=== PATIENT | female | born 1995 | race Caucasian/White ===

== ENCOUNTER 2018-05-17 04:51 | Emergency (ER) | payer OTHER ==
[2018-05-17 06:03] LABS: HCG Qualitative,Urine Positive (Negative)
[2018-05-17 06:05] LABS: Bilirubin,Urine NEG (Negative); Blood,Urine NEG (Negative); Color,Urine Yellow (Yellow); Mucus,Urine 1+ /HPF; Protein,Urine <15 mg/dL mg/dL (Negative); Urobilinogen,Urine < 2.0 mg/dL (<2.0)
[2018-05-17 06:32] LABS: Basophils % (Auto) 0.4 % (0.0-1.8); Eosinophils % (Auto) 0.3 % (0.0-4.3); Hematocrit 39.7 % (30.3-42.9); Hemoglobin 13.1 gm/dl (10.1-14.3); Lymphocytes # (Auto) 1.7 K/mm3 (1.2-5.4); Lymphocytes % (Auto) 15.2 % (13.4-35.0); Mean Corpuscular HGB Conc 33 % (30-34); Mean Corpuscular Volume 85 fl (79-97); Monocytes # (Auto) 0.7 K/mm3 (0.0-0.8); Monocytes % (Auto) 6.3 % (0.0-7.3); Platelet Count 252 K/mm3 (140-440); Red Blood Count 4.67 M/mm3 (3.65-5.03); Red Cell Distribution Width 14.5 % (13.2-15.2)
[2018-05-17 07:27] LABS: Alanine Aminotransferase 27 units/L (7-56); Albumin 4.5 g/dL (3.9-5); BUN/Creatinine Ratio 20; Blood Urea Nitrogen 8 mg/dL (7-17); Calcium 9.6 mg/dL (8.4-10.2); Hemolysis Index 5
--- NOTE | 2018-05-17 07:31 | Emergency Department Report ---
ED Abdominal Pain HPI - General Chief Complaint: Abdominal Pain Stated Complaint: ABD PAIN Time Seen by Provider: 05/17/18 07:08 Source: patient Mode of arrival: Ambulatory Limitations: No Limitations - History of Present Illness Initial Comments: She is a 22-year-old female that reports to the ER today complaining of a fall during the night. She states at 1:30 this morning she got up while reaching for a bowl of fruit that she had on her floor and tripped and fell. She states that she landed on her abdomen. Pt reports diffuse pain. Pt obese. Vision reporting that she has had a positive home test. Her last menstrual period was 224. Patient denies vaginal bleeding. She is in no acute distress on exam. a1 Severity scale (0 -10): 0 Associated Symptoms: denies other symptoms - Related Data Allergies Allergy/AdvReac Type Severity Reaction Status Date / Time No Known Allergies Allergy Verified 01/14/18 00:06 ED Review of Systems ROS: Stated complaint: ABD PAIN Other details as noted in HPI Comment: All other systems reviewed and negative Constitutional: denies: chills Eyes: denies: eye pain Respiratory: denies: cough Cardiovascular: denies: palpitations Gastrointestinal: as per HPI, abdominal pain. denies: nausea, vomiting Genitourinary: denies: dysuria Musculoskeletal: denies: back pain Skin: denies: rash Neurological: denies: headache Psychiatric: denies: anxiety Hematological/Lymphatic: denies: easy bleeding ED Past Medical Hx - Past Medical History Previous Medical History?: No Hx Hypertension: No Hx Diabetes: No - Surgical History Hx Appendectomy: Yes Additional Surgical History: - Family History Family history: no significant - Social History Smoking Status: Never Smoker Substance Use Type: None ED Physical Exam - General Limitations: No Limitations General appearance: alert, in no apparent distress - Head Head exam: Present: atraumatic, normocephalic - Eye Eye exam: Present: normal appearance, PERRL - ENT ENT exam: Present: mucous membranes moist - Neck Neck exam: Present: normal inspection, full ROM - Respiratory Respiratory exam: Present: normal lung sounds bilaterally - Cardiovascular Cardiovascular Exam: Present: regular rate - GI/Abdominal GI/Abdominal exam: Present: soft, normal bowel sounds - Rectal Rectal exam: Present: deferred - Extremities Exam Extremities exam: Present: normal inspection, full ROM - Back Exam Back exam: Present: normal inspection, full ROM. Absent: tenderness, CVA tenderness (R), CVA tenderness (L), muscle spasm - Neurological Exam Neurological exam: Present: alert, oriented X3, normal gait, reflexes normal - Psychiatric Psychiatric exam: Present: normal affect, normal mood - Skin Skin exam: Present: warm, dry, intact ED Course Vital Signs 05/17/18 05/17/18 05/17/18 05:03 05:29 10:54 Temperature 98.1 F 98.1 F Pulse Rate 80 67 82 Respiratory 18 18 16 Rate Blood Pressure 113/58 113/58 Blood Pressure 108/62 [Right] O2 Sat by Pulse 99 97 Oximetry ED Medical Decision Making - Lab Data Result diagrams: 05/17/18 05:57 05/17/18 05:57 - Radiology Data Radiology results: report reviewed, image reviewed - Medical Decision Making Labs 05/17/18 05/17/18 05/17/18 05:40 05:57 05:57 WBC 11.4 H RBC 4.67 Hgb 13.1 Hct 39.7 MCV 85 MCH 28 MCHC 33 RDW 14.5 Plt Count 252 Lymph % (Auto) 15.2 [place] % (Auto) 6.3 Eos % (Auto) 0.3 Baso % (Auto) 0.4 Lymph # 1.7 [place] # 0.7 Eos # 0.0 Baso # 0.0 Seg Neutrophils % 77.8 H Seg Neutrophils # 8.9 H Sodium 138 Potassium 4.1 Chloride 102.2 Carbon Dioxide 21 L Anion Gap 19 BUN 8 Creatinine 0.4 L Estimated GFR > 60 BUN/Creatinine Ratio 20 Glucose 99 Calcium 9.6 Total Bilirubin 0.30 AST 18 ALT 27 Alkaline Phosphatase 100 Total Protein 7.4 Albumin 4.5 Albumin/Globulin Ratio 1.6 HCG, Quant Urine Color Yellow Urine Turbidity Slightly-cloudy Urine pH 6.0 Ur Specific [place] 1.033 H Urine Protein <15 mg/dl Urine Glucose (UA) Neg Urine Ketones 20 Urine Blood Neg Urine Nitrite Neg Ur Reducing Substances Not Reportable Urine Bilirubin Neg Urine Ictotest Not Reportable Urine Urobilinogen < 2.0 Ur Leukocyte Esterase Tr Urine WBC (Auto) 2.0 Urine RBC (Auto) 3.0 U Epithel Cells (Auto) 14.0 H Urine Mucus 1+ Urine HCG, Qual Positive A 05/17/18 07:30 WBC RBC Hgb Hct MCV MCH MCHC RDW Plt Count Lymph % (Auto) [place] % (Auto) Eos % (Auto) Baso % (Auto) Lymph # [place] # Eos # Baso # Seg Neutrophils % Seg Neutrophils # Sodium Potassium Chloride Carbon Dioxide Anion Gap BUN Creatinine Estimated GFR BUN/Creatinine Ratio Glucose Calcium Total Bilirubin AST ALT Alkaline Phosphatase Total Protein Albumin Albumin/Globulin Ratio HCG, Quant 07340 H Urine Color Urine Turbidity Urine pH Ur Specific [place] Urine Protein Urine Glucose (UA) Urine Ketones Urine Blood Urine Nitrite Ur Reducing Substances Urine Bilirubin Urine Ictotest Urine Urobilinogen Ur Leukocyte Esterase Urine WBC (Auto) Urine RBC (Auto) U Epithel Cells (Auto) Urine Mucus Urine HCG, Qual Vital Signs 05/17/18 05/17/18 05/17/18 05:03 05:29 10:54 Temperature 98.1 F 98.1 F Pulse Rate 80 67 82 Respiratory 18 18 16 Rate Blood Pressure 113/58 113/58 Blood Pressure 108/62 [Right] O2 Sat by Pulse 99 97 Oximetry Using the audit machine operator the patient was informed of the ultrasound findings which are positive for subchorionic hemorrhage. Given the patient's size in the age of the I doubt that the fall is related to this subchorionic hemorrhage. Patient has had one miscarriage in the past. Patient was informed on discharge that she may in fact have some vaginal bleeding and not tympanic if she should but to go to the [facility].Patient has had no care to this point. I discussed with her that she needs to see an [facility] within 48 hours. She has been given a referral. Patient being discharged home with her significant other, on pelvic rest with Tylenol for pain. Patient and significant other verbalize understanding of discharge plan of care. On dc pt ambulatory and taking PO without difficulty. She denies pain. - Differential Diagnosis ro AB Critical care attestation.: If time is entered above; I have spent that time in minutes in the direct care of this critically ill patient, excluding procedure time. ED Disposition Clinical Impression: , Subchorionic hematoma, Fall Disposition: DC-[id number] TO HOME OR SELFCARE Is pt being admited?: No Does the pt Need Aspirin: No Condition: Stable Instructions: (ED) Additional Instructions: nothing in vagina tylenol for pain diet as tolerated hydrate well with water follow up with obgyn within 48 hours referral below Referrals: [place]AVON [place] MD ANGELA [Primary Care Provider] - 3-5 Days CRISTINA PIERCE MD [Staff Physician] - 3-5 Days Time of Disposition: 10:42
--- NOTE | 2018-05-17 09:57 | Ultrasound Report ---
ULTRASOUND OB LESS THAN 14 WEEKS FETUS ULTRASOUND OB TRANSVAGINAL HISTORY: Abdominal pain during . FINDINGS: Transabdominal and transvaginal imaging was performed. The uterus measures 7.9 x 5.1 x 5.6 cm. The uterus is anteverted on the transabdominal images and retroverted on the transvaginal images. No obvious uterus mass. The cervix is obscured. An intrauterine gestational sac is identified containing a pole and yolk sac. heart rate measures 121 beats per minute. [place]-rump length measures 8 mm which correlates with a 6 week 6 day . Estimated due date is 01/04/19. A moderate subchorionic hemorrhage is identified along the anterior, inferior gestational sac. The right ovary measures 3.8 x 2.3 x 2.5 cm. There is a 2.8 cm complex cyst in the right ovary which resembles a corpus luteum cyst. The left ovary measures 2.5 x 1.2 x 2.1 cm and is unremarkable. No pelvic fluid collection. IMPRESSION: Viable, single intrauterine as described. Moderate subchorionic hemorrhage. Probable corpus luteum cyst in the right ovary.
[2018-05-17 10:56] VITALS: BP 108/62
== END 2018-05-17 10:56 | disposition home or self-care (01) ==
LOC: ED 04:51
DX: O43.891 Other placental disorders, first trimester (principal); Z3A.01 Less than 8 weeks gestation of pregnancy; W01.0XXA Fall on same level from slipping, tripping and stumbling without subsequent striking against object, initial encounter; Y93.01 Activity, walking, marching and hiking; Y92.89 Other specified places as the place of occurrence of the external cause; Y99.8 Other external cause status
CPT/HCPCS: 36415; 76801; 76817; 80053; 81001; 81025; 84702; 85025

== ENCOUNTER 2019-12-24 21:57 | Emergency (ER) | payer SELFPAY ==
[2019-12-24 22:56] LABS: Bilirubin,Urine NEG (Negative); Blood,Urine NEG (Negative); Color,Urine Yellow (Yellow); Mucus,Urine FEW /HPF; Protein,Urine <15 mg/dL mg/dL (Negative); Urobilinogen,Urine < 2.0 mg/dL (<2.0); WBC,Urine < 1.0 /HPF (0.0-6.0)
[2019-12-24 23:06] LABS: HCG Qualitative,Urine Negative (Negative)
[2019-12-25] MEDS ORDERED: HYDROcodone/ACETAMINOPHEN 5-325 MG TAB PO ONE (00:31)
[2019-12-25] MEDS ORDERED: NITROFURANTOIN MONOHYD/M-CRYST 100 MG CAP PO ONE (00:31)
[2019-12-25] MEDS ORDERED: ONDANSETRON 4 MG ODT TAB PO ONE (00:31)
[2019-12-25] MEDS ORDERED: IBUPROFEN 400 MG TAB PO ONE (00:31)
--- NOTE | 2019-12-25 00:31 | Emergency Department Report ---
ED Back Pain/Injury HPI - General Chief Complaint: Abdominal Pain Stated Complaint: BACK PAIN X2 DAYS Time Seen by Provider: 12/24/19 23:58 Source: patient Limitations: No Limitations - History of Present Illness Initial Comments: Chief complaint back pain HPI: This is a 24-year-old female without significant past medical history who presents with bilateral flank pain rating to the groin since yesterday. She also has burning with urination. Pain is moderately severe. No fever. No previous history of kidney stone. No hematuria. [place] language line interpreter for the deaf per phone was used to obtain history. MD Complaint: back pain -: Gradual Similar Symptoms Previously: No Place: home Radiation: groin (Bilateral groin) Severity: moderate Quality: sharp, dull Consistency: intermittent Improves With: none Worsens With: none Associated Symptoms: other (Dysuria) - Related Data Previous Rx's Medication Instructions Recorded Last Taken Type HYDROcodone/APAP 5-325 [[place] 1 each PO Q6HR PRN #10 tablet 12/25/19 Unknown Rx 5/325] Nitrofurantoin Macrocrystal 100 mg PO BID 7 Days #14 capsule 12/25/19 Unknown Rx [Nitrofurantoin] Promethazine [Phenergan] 25 mg PO Q6HR PRN #10 tab 12/25/19 Unknown Rx Allergies Allergy/AdvReac Type Severity Reaction Status Date / Time No Known Allergies Allergy Verified 01/14/18 00:06 ED Review of Systems ROS: Stated complaint: BACK PAIN X2 DAYS Other details as noted in HPI Comment: All other systems reviewed and negative Constitutional: denies: fever, malaise Respiratory: denies: shortness of breath Cardiovascular: denies: chest pain Gastrointestinal: denies: abdominal pain, nausea, vomiting Genitourinary: dysuria Musculoskeletal: back pain ED Past Medical Hx - Past Medical History Previous Medical History?: Yes Hx Hypertension: Yes (after elevated BPP and HR, no treatment with medication or f/u) Hx Diabetes: No Hx Deep Vein Thrombosis: No Hx Renal Disease: No Hx Seizures: No Hx Asthma: No Hx HIV: No - Surgical History Past Surgical History?: Yes Hx Appendectomy: Yes Additional Surgical History: X 2 - Social History Smoking Status: Never Smoker Substance Use Type: None - Medications Home Medications: Home Medications Medication Instructions Recorded Confirmed Last Taken Type HYDROcodone/APAP 5-325 [[place] 1 each PO Q6HR PRN #10 tablet 12/25/19 Unknown Rx 5/325] Nitrofurantoin Macrocrystal 100 mg PO BID 7 Days #14 capsule 12/25/19 Unknown Rx [Nitrofurantoin] Promethazine [Phenergan] 25 mg PO Q6HR PRN #10 tab 12/25/19 Unknown Rx ED Physical Exam - General Limitations: No Limitations General appearance: alert, in no apparent distress - Head Head exam: Present: atraumatic, normocephalic - Eye Eye exam: Present: normal appearance - ENT ENT exam: Present: mucous membranes moist - Neck Neck exam: Present: normal inspection, full ROM - Respiratory Respiratory exam: Present: normal lung sounds bilaterally. Absent: respiratory distress, wheezes, rales, rhonchi - Cardiovascular Cardiovascular Exam: Present: regular rate, normal rhythm, normal heart sounds. Absent: systolic murmur, diastolic murmur, rubs, gallop - GI/Abdominal GI/Abdominal exam: Present: soft, normal bowel sounds. Absent: distended, tenderness, guarding, rebound - Extremities Exam Extremities exam: Present: normal inspection - Back Exam Back exam: Present: CVA tenderness (R), CVA tenderness (L) - Neurological Exam Neurological exam: Present: alert, oriented X3 - Psychiatric Psychiatric exam: Present: normal affect, normal mood - Skin Skin exam: Present: warm, dry, intact, normal color. Absent: rash ED Course Vital Signs 12/24/19 22:03 Temperature 98.8 F Pulse Rate 74 Respiratory 16 Rate Blood Pressure 112/60 O2 Sat by Pulse 97 Oximetry ED Medical Decision Making - Lab Data Laboratory Results - last 24 hr 12/24/19 Unknown Urine Color Yellow Urine Turbidity Clear Urine pH 7.0 Ur Specific [place] 1.014 Urine Protein <15 mg/dl Urine Glucose (UA) Neg Urine Ketones Neg Urine Blood Neg Urine Nitrite Neg Urine Bilirubin Neg Urine Urobilinogen < 2.0 Ur Leukocyte Esterase Neg Urine WBC (Auto) < 1.0 Urine RBC (Auto) 1.0 U Epithel Cells (Auto) 1.0 Urine Mucus Few Urine HCG, Qual Negative - Medical Decision Making This is a 24-year-old female who presents with bilateral flank pain dysuria. Pain radiates to the groin. Considerations: UTI, renal colic, ovarian cyst. Patient appears well. She does not appear in severe pain. Currently test negative. Will treat for UTI although urinalysis unremarkable. No hematuria to suggest renal colic. Patient understands return precautions. Discharge instructions were provided with the assistance of [place] language line interpreter for the deaf. Prescriptions: Nitrofurantoin, [place], promethazine Critical care attestation.: If time is entered above; I have spent that time in minutes in the direct care of this critically ill patient, excluding procedure time. ED Disposition Clinical Impression: UTI (urinary tract infection), Flank pain Disposition: TO HOME OR SELFCARE Is pt being admited?: No Does the pt Need Aspirin: No Condition: Stable Instructions: Abdominal Pain (ED), Flank Pain, Adult, [id number] Prescriptions: Nitrofurantoin Macrocrystal [Nitrofurantoin] 100 mg PO BID 7 Days #14 capsule HYDROcodone/APAP 5-325 [[place] 5/325] 1 each PO Q6HR PRN #10 tablet PRN Reason: Pain Promethazine [Phenergan] 25 mg PO Q6HR PRN #10 tab PRN Reason: Nausea Referrals: FLETCHER CHAVARRIA MD [Staff Physician] - 3-5 Days Print Language: CYMRO
[2019-12-25 01:13] VITALS: BP 116/70
== END 2019-12-25 01:12 | disposition home or self-care (01) ==
LOC: ED 21:57
DX: N39.0 Urinary tract infection, site not specified (principal); R10.9 Unspecified abdominal pain; I10 Essential (primary) hypertension; Z79.899 Other long term (current) drug therapy; Z90.49 Acquired absence of other specified parts of digestive tract; Z98.890 Other specified postprocedural states
CPT/HCPCS: 81001; 81025; Q0162